=== PATIENT | female | born 1940 | race Caucasian/White ===

== ENCOUNTER 2021-04-24 13:25 | Emergency (ER) | payer MEDICARE ==
[~2021-04-24] VITALS: Ht 157.5 cm; Wt 92.5 kg
[~2021-04-24 13:25] MED LIST: ASPIR 8181 MG PO; CENTRUM SILVER1 EAC3 PO; CIPRO500 MG PO; GLUCOSAMINE-CH1 EA36 PO; HUMALOG MI100 UNIT/2 SUB-Q; IMODIUM A-D2 M2 PO; LEVOTHYROXINE125 MCG PO; LISINOPRIL-HCT1 EACH PO; MELOXICAM15 MG PO; METOPROLOL SUCC25 MG PO; PREVALITE PACKET4 GM PO; SIMVASTATIN40 MG PO; SUPER B WITH V1 EACH PO; TRAVATAN Z5 ML OPTH; VITAMIN D31000 UNI1 PO
[2021-04-24] MEDS ORDERED: ELIQUIS5 MG PO (13:38)
[2021-04-24] MEDS ORDERED: NITROFURANTOIN100 M1 PO (13:38)
[2021-04-24] MEDS ORDERED: DOXYCYCLINE HY100 MG PO (13:39)
--- NOTE | 2021-04-25 06:26 | CONS ---
[facility] [address], [place] [address] Signed DATE OF CONSULTATION: 04/24/2021 CHIEF COMPLAINT: Epigastric abdominal pain. 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 She has had six days of epigastric and right upper quadrant abdominal pain radiating through to her back in her shoulder. Apparently, she has been to the urgent care clinic and her primary care provider. Lots of blocks has been done and they thought she might have a urinary tract infection. Apparently, she was supposed to take some medication for that. She has been getting worse over the last six days and finally came to the emergency room for evaluation. In the emergency room, she has peritonitis in the epigastric right upper quadrant. White count was a little elevated at 10.1. There is no lactic acid. The AST and ALT are not particularly concerning. The alkaline phosphatase was up a little bit at 119. Albumin is low at 2.1. Lipase was normal at 115. Chest x-ray was unremarkable except for her TAVR replacement of her aortic valve. She had an ultrasound of the right upper quadrant, it was unconcerning. Therefore, she had a CT scan of abdomen and pelvis and she has significant inflammatory changes around the antrum, duodenum with fluid around the gallbladder and liver with a few bubbles of air around the duodenum and the antrum. Obviously, there was concern for perforated viscus, particularly an ulcer. I have been asked to see her as a general surgeon on-call. In the meantime, she has declined pain medication, but did receive cefepime and Flagyl. She is here with her two daughters. PAST MEDICAL HISTORY: Thyroid cancer, colon cancer, hypothyroidism, type 2 diabetes, hypertension, hypercholesterolemia, coronary artery disease, and T12 compression fracture. PAST SURGICAL HISTORY: Includes the total thyroidectomy, colectomy in 1994, ventral hernia repair with mesh and TAVR aortic valve replacement. SOCIAL HISTORY: She does not smoke or drink. She still lives alone in a house, but does not drive. 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 Beatriz Dukes is her primary care provider. She has four children. She is now a . She has two daughters here [place], Michelle at [phone] and Lucero at [phone]. Her son, Nasir has also been available to us on the phone. FAMILY HISTORY: Her sister had diabetes and chronic renal failure and eventually passed. Electronically Signed By: ALVINO ARMENTA MD 04/25/21 0626 PATIENT NAME: RONNA MELO CONSULTATION DATE OF : 36 REPORT #: [id number] PHYSICIAN: ALVINO ARMENTA MD PCP: BEATRIZ DUKES REPORT IS CONFIDENTIAL AND NOT TO BE RELEASED WITHOUT AUTHORIZATION [address] [address] Signed REVIEW OF SYSTEMS: Ronna told me she gets around fairly well with a cane, but sometimes uses a walker. ALLERGIES: Morphine, sulfa, Demerol, codeine, and cyclobenzaprine, but Dilaudid seems to work fine. MEDICATIONS: 1. Insulin. 2. Levothyroxine. 3. Lisinopril. 4. Hydrochlorothiazide. 5. Metoprolol. 6. Simvastatin. 7. Aspirin. 8. Loperamide. 9. Multivitamin. 10. Vitamin B. 11. Vitamin D. 12. Glucosamine. 13. Chondroitin. 14. Nitrofurantoin. 15. Eliquis. 16. Doxycycline. PHYSICAL EXAMINATION: VITAL SIGNS: Her blood pressure is up with IV fluids at 121/58, heart rate 70, respiratory rate 21, temperature is 98.2. She is 100% on 2 L nasal cannula. She is 5 feet 2 inches at 92 kg. GENERAL: Ronna is an 80-year-old elderly obese female, lying supine in her ER bed. Her two daughters are in the room. She does answer appropriately but it takes some coaxing and it is obvious that she is not feeling well. LUNGS: Generally clear to auscultation bilaterally. HEART: Regular rate and rhythm without murmurs. ABDOMEN: Obese and soft but she clearly has peritonitis in the epigastric area in the right upper quadrant. LABORATORY DATA: Her white blood count is 10.1, hemoglobin 11.7, neutrophils are 77, platelets are 271. Her BUN is up a little at 41, creatinine is slightly up at 1.39, glucose is good at 118. Urinalysis generally good except for maybe a least yeast. AST is 39, ALT 41, alkaline phosphatase 119, albumin is 2.1, lipase 115. RADIOGRAPHIC STUDIES: This chest x-ray is unremarkable other than her TAVR aortic valve replacement. Electronically Signed By: ALVINO ARMENTA MD 04/25/21 0626 PATIENT NAME: RONNA MELO CONSULTATION DATE OF : 36 REPORT #: [id number] PHYSICIAN: ALVINO ARMENTA MD PCP: BEATRIZ DUKES [facility] REPORT IS CONFIDENTIAL AND NOT TO BE RELEASED WITHOUT AUTHORIZATION [address] [address] Signed Ultrasound of the right upper quadrant was unremarkable. The CT scan of the abdomen and pelvis shows the inflammatory changes around the antrum and pyloric channel along with a few bubbles of air and reactive fluid around the gallbladder and the liver. ASSESSMENT AND PLAN: Ronna is an 80-year-old female who presents with a perforated viscus, most likely perforated duodenal or antral ulcer. She is currently going to receive Kcentra to reverse the Eliquis. We are in the midst of our COVID pandemic with a significant rise in admissions. Our 25-bed critical access hospital is full. We have one hospitalist available, who has been working five straight days along with myself. It has been quite challenging obviously with providing our efforts between this many different patients with such high level of care. We know that Ronna is quite sick and she is going to require significant ICU care following her surgery. After talking with Ronna and her two daughters, it was felt that she would be willing to accept at least two weeks of full ICU care and after that reassess. At this point, she has kept herself a full code. We felt that her best option would [facility] at [facility] in [place], [place]. We took the opportunity to call the surgeon, Dr. Hector who graciously is willing to accept her as a direct transfer from ER to the ER. He has headed into surgery himself but will be available by the time she makes it down to [place]. The ER doctor, Dr. Willams had talked to me personally on the phone as well. We are currently in the process of mobilizing our [facility] and will be getting her down to [place]. I reviewed all this with Ronna, her two daughters and her son, they are all in agreement. They are aware that she is quite ill and has a significant hill to climb in front of her. I am certainly happy to help her upon her return to [place]. They have expressed understanding and agreed with the above plan. MD DONNA Andrade/ОЛЕГL /[id number] cc: MD Dr. Beatriz Andrade Copies: ALVINO ARMENTA MD Electronically Signed By: ALVINO ARMENTA MD 04/25/21 0626 PATIENT NAME: RONNA MELO CONSULTATION DATE OF : 36 REPORT #: [id number] PHYSICIAN: ALVINO ARMENTA MD PCP: BEATRIZ DUKES [facility] REPORT IS CONFIDENTIAL AND NOT TO BE RELEASED WITHOUT AUTHORIZATION [facility] [address] [place] [id number] Signed ~ Electronically Signed By: ALVINO ARMENTA MD 04/25/2126 PATIENT NAME: RONNA MELO CONSULTATION DATE OF : 36 REPORT #: [id number] PHYSICIAN: ALVINO ARMENTA MD PCP: BEATRIZ DUKES [facility] REPORT IS CONFIDENTIAL AND NOT TO BE RELEASED WITHOUT AUTHORIZATION
--- NOTE | 2021-04-27 11:25 | EKG ---
[facility] [address] [facility] [place] [address] Signed Sinus rhythm with premature supraventricular complexes Low voltage QRS Borderline ECG No previous ECGs available Confirmed by ELENI MONTELONGO MD ([id number]) on 04/27/2021 11:24:58 AM Electronically Signed By: ELENI MONTELONGO MD 04/27/21 1125 PATIENT NAME: RONNA MELO Electrocardiogram DATE OF : 36 PHYSICIAN: ELENI MONTELONGO MD REPORT #: [id number] REPORT IS CONFIDENTIAL AND NOT TO BE RELEASED WITHOUT AUTHORIZATION
== END 2021-04-24 23:33 | disposition short-term general hospital (02) ==
LOC: ED 13:25
DX: K25.5 Chronic or unspecified gastric ulcer with perforation (principal); E03.9 Hypothyroidism, unspecified; E78.00 Pure hypercholesterolemia, unspecified; E11.9 Type 2 diabetes mellitus without complications; I10 Essential (primary) hypertension; Z20.822 Contact with and (suspected) exposure to COVID-19; Z85.038 Personal history of other malignant neoplasm of large intestine; Z88.2 Allergy status to sulfonamides; Z88.8 Allergy status to other drugs, medicaments and biological substances; Z88.5 Allergy status to narcotic agent; Z79.4 Long term (current) use of insulin; Z79.899 Other long term (current) drug therapy; Z79.890 Hormone replacement therapy; Z79.82 Long term (current) use of aspirin
CPT/HCPCS: 51701; 71045; 74176; 76705; 80053; 81001; 83690; 84484; 85025; 93005; 93010; 96368; 99285-25; C9113; C9803; J0692; J1170; J2405; J7030; J7040; J7168; U0003

== ENCOUNTER 2021-06-23 19:11 | Inpatient (IN) | payer MEDICARE ==
[~2021-06-23] VITALS: Ht 157.5 cm; Wt 69.4 kg
[~2021-06-23 19:11] MED LIST changes: +DOXYCYCLINE HY100 MG PO; +ELIQUIS5 MG PO; +LEVO-T150 MCG PO; -LEVOTHYROXINE125 MCG PO; +NITROFURANTOIN100 M1 PO; -VITAMIN D31000 UNI1 PO; +VITAMIN D31250 MCG PO
[2021-06-23] MEDS ORDERED: CEFTRIAXONE2 G2 IM (20:26)
[2021-06-23] MEDS ORDERED: ARTHRITIS PAIN150 GM TOP (20:27)
[2021-06-23] MEDS ORDERED: DIPROLENE 0.05%15 GM TOP (20:28)
[2021-06-23] MEDS ORDERED: INSULIN GL100 UNIT/1 SQ (20:29)
[2021-06-23] MEDS ORDERED: CEPHALEXIN500 MG PO (20:32)
[2021-06-23] MEDS ORDERED: ONDANSETRON ODT4 MG PO (20:33)
[2021-06-23] MEDS ORDERED: PROBIOTIC1 EAC2 PO (20:34)
[2021-06-23] MEDS ORDERED: ZESTORETIC 20-1 EACH PO ×2 (20:40→21:59)
[2021-06-23] MEDS ORDERED: PROTONIX20 MG PO (20:40)
--- NOTE | 2021-06-23 21:14 | EKG ---
[facility] [address] [facility] [place] [address] Signed Sinus rhythm with occasional premature ventricular complexes Anterolateral infarct , age undetermined Abnormal ECG When compared with ECG of 24-APR-2021 17:20, premature ventricular complexes are now present premature supraventricular complexes are no longer present Anterolateral infarct is now present Confirmed by DINO MARCELINO MD ([id number]) on 06/23/2021 9:14:36 PM Electronically Signed By: DINO MARCELINO MD 06/23/21 2114 PATIENT NAME: RONNA MELO Electrocardiogram DATE OF : 36 PHYSICIAN: DINO MARCELINO MD REPORT #: [id number] REPORT IS CONFIDENTIAL AND NOT TO BE RELEASED WITHOUT AUTHORIZATION
--- NOTE | 2021-06-24 22:26 | NUR ---
ARRIVED TO THE FLOOR DROWSY. DOES NOT WANT TO BE MOVED. DAUGHTERS ASSISTED WITH TURNING TO OBTAIN PICTURES OF THE WOUNDS TO HER HIPS. HEELS FLOATED. IVF INFUSING. DINING ROOM ATTENDANT AWARE OF NEED FOR D5LR WITH 20 KCL.
--- NOTE | 2021-06-25 03:17 | NUR ---
HEEL PROTECTORS ON. VS TAKEN. NG TUBE DRAINING DARK GREEN FLUID. PT DOES NOT WANT TO PARTICIPATE IN CARE. BG 162.
--- NOTE | 2021-06-25 03:41 | NUR ---
PIP[facility] FROM [facility] CALLED FOR UPDATE ON PT. STATES THERE ARE STILL NO BEDS AVAILABLE.
--- NOTE | 2021-06-25 05:56 | NUR ---
PT HAS HAD AN UNEVENTFUL NIGHT. 200 OF DARK GREEN DRAINAGE FROM NG TUBE. HAS DENIED NAUSEA AND PAIN THROUGHOUT THE SHIFT. IS NOT INTERESTED IN PARTICIPATING IN CARE OR ALLOWING CARE TO BE DONE TO HER. PT NOTED CHANGING POSITION IN BED. RECEIVED CALL FROM [facility] WANTING UPDATE. STILL NO BED AVAILABLE.
--- NOTE | 2021-06-25 07:30 | NUR ---
PATIENT REPORT GIVEN TO THIS RN BY MARIELOS Ugalde RN. PATIENT RESTING QUIETLY ON HER RIGHT SIDE, EYES CLOSED, RESPIRATIONS ARE REGULAR AND EVEN, AND CALL LIGHT IS IN REACH. PATIENT HAS NO CURRENT CARE NEEDS AT THIS TIME.
--- NOTE | 2021-06-25 08:06 | EKG ---
[facility] [address] [facility] [place] [address] Signed Sinus rhythm with premature atrial complexes Anterolateral infarct (cited on or before 23-JUN-2021) Abnormal ECG When compared with ECG of 23-JUN-2021 19:30, premature ventricular complexes are no longer present premature atrial complexes are now present Confirmed by DINO MARCELINO MD ([id number]) on 06/25/2021 8:06:35 AM Electronically Signed By: DINO MARCELINO MD 06/25/21 0806 PATIENT NAME: RONNA MELO Electrocardiogram DATE OF : 36 PHYSICIAN: DINO MARCELINO MD REPORT #: [id number] REPORT IS CONFIDENTIAL AND NOT TO BE RELEASED WITHOUT AUTHORIZATION
--- NOTE | 2021-06-25 09:30 | NUR ---
THIS RN IN ROOM TO GIVE AM MEDS AND PERFORM AM ASSESSMENT. LAC IV INFILTRATED AND ALMOST ALL AM MEDS AR E IV. THIS IV WAS DC'D AND 2 ATTEMPTS MADE BY THIS RN TO ESTABLISH A NEW IV SITE WITHOUT SUCCESS. CHARGE NURSE AND NURSE TUBE SKIVER CALLED. GAVE VERBAL ORDER FOR A MIDLINE TO BE PLACED. AWAITING IV ACCESS TO GIVE AM MEDS. PATIENT IRRITABLE AND WANTS STAFF TO LEAVE HER ALONE SO SHE CAN SLEEP. THIS RN TRIED TO EXPLAIN THE REASONS STAFF WERE IN THE ROOM AND SOON WE COULD GET IV ACCESS WE WOULD BE ABLE TO LET HER REST. PATIENT NOT HAPPY WITH THIS ANSWER, BUT SAID,"OK".
--- NOTE | 2021-06-25 10:50 | NUR ---
THIS RN TO ROOM TO ASSIST WITH IV START. 24 G IV STARTED TO LEFT UPPER ARM/SHOULDER PER PROTOCOL. BLOOD RETURN NOTED. PT NOTED TO HAVE VERY LIMITED VEINS. MD CONSULTED REGARDING POSSIBLE PICC/MID LINE. MD AWARE. JERRY, PTS ASHLIE RN UPDATED. NO ADDITIONAL NEEDS AT THIS TIME. PTS PRIMARY RN AT BEDSIDE. CALL LIGHT WITHIN REACH. BED RAILS UP.
[2021-06-25] MEDS ORDERED: ACETAMINOPHEN325 M1 PO (10:51)
[2021-06-25] MEDS ORDERED: METOPROLOL SUCC50 MG PO (10:57)
[2021-06-25] MEDS ORDERED: CENTRUM SILVER1 EAC3 PO (11:08)
--- NOTE | 2021-06-25 11:15 | NUR ---
Medications reconciled using [facility] med list
--- NOTE | 2021-06-25 11:50 | NUR ---
NURSE SPECIALIST FIELD ENGINEER AND DEPUTY COUNTY COUNSEL IN PATIENT'S ROOM TRYING TO FIND ANOTHER IV SITE AT THIS TIME.
--- NOTE | 2021-06-25 13:10 | NUR ---
THIS RN IN TO CHECK ON PATIENT. PATIENT RESTING QUIETLY SUPINE, EYES CLOSED, RESPIRATIONS ARE REGULAR AND EVEN, CALL LIGHT IS IN REACH. PATIENT HAS WANTED TO BE LEFT ALONE TO SLEEP.
--- NOTE | 2021-06-25 14:03 | NUR ---
9 BEAT RUN OF V-TACH NOTED ON MONITOR. MED/SURG CALLED AND WILL CHECK ON PT. PT HAS NOW RETURNED TO SINUS RYTHEM WITH HR OF 80'S.
--- NOTE | 2021-06-25 14:42 | NUR ---
PATIENT CALLED AND WANTS TO BE REPOSITIONED IN BED. THIS IS THE FIRST PATIENT INITIATED CONTACT OF THE DAY PATIENT HAS NO WANTED STAFF IN HER ROOM AND HAS WANTED TO BE LEFT ALONE TO SLEEP. PATIENT PULLED UP AND REPOSITIONED IN BED BY THIS RN AND DARIUS CARRASQUILLO. PATIENT DENIES PAIN. ALL 1400 MEDS HAVE BEEN GIVEN AND PATIENT REQUIRED 1UNIT OF INSULIN COVERAGE. BOTH IV'S ARE INFUSING WNL AND SWELLING AND IS DOWN AND REDNESS GONE IN PREVIOUS IV SITE THAT INFILTRATED AT THE LAC. PATIENT VS ARE STABLE AND CALL LIGHT REMAINS IN REACH. PATIENT DENIES ANY OTHER CARE NEEDS AT THIS TIME AND HAS ASKED TO NOT BE DISTURBED, BUT DARIUS STEWART IS COMING TO PLACE A MIDLINE OR PICC LINE FOR THE PATIENT.
--- NOTE | 2021-06-25 16:01 | NUR ---
[facility] CALLED AND WAS UPDATE ON PATIENT'S CONDITION BY THIS RN. TRANSFER CENTER SAYS THEY STILL DON'T HAVE A BED AT THIS TIME, BUT WILL KEEP WORKING ON IT.
--- NOTE | 2021-06-25 16:02 | NUR ---
PATIENT'S DAUGHTER CALLED AND WAS UPDATED ON PATIENT'S CARE. PATIENT REQUESTING DAUGHTER COME IN AND SPEND SOME TIME WITH PATIENT THIS EVENING AND DAUGHTER SAYS SHE WILL BE IN.
--- NOTE | 2021-06-25 16:12 | NUR ---
MIDLINE INSERTION NOTE ORDERS RECIEVED TO EVALUATE RONNA FOR POSSIBLE MIDLINE PLACEMENT. AFTER REVIEWING THE CHART AND INTERVIEWING THE PAITNET, NO ABSOLUTE CONTRAINDICATIONS WERE IDENTIFIED. RISKS AND COMPLICATIONS OF MID LINES WERE DISCUSSED AND INFORMED VERBAL CONSENT WAS GIVEN PRIOR TO THE START OF THE PROCEDURE. THE RISKS OF BLEEDING, BRUISING, AND INFECTION WERE EMPHASIZED TO THE PAITIENT. THE RIGHT ARM WAS EVALUATED WITH SITE RITE U/S AND THE RIGHT BASILIC VEIN WAS FOUND TO BE LARGE ENOUGH TO ACCOMIDATE AN 4 FR MIDLINE WHICH WOULD TAKE UP 41% OF THE VESSEL VOLUME PER SITE RITE. THE ARM WAS PREPED AND DRAPED AND STERILE TECHNIQUE WAS FOLLOWED FOR THE DURATION OF THE INSERTION AND DRESSING APPLICATION. AN 18G 10CM MIDLINE WAS SELECTED AND THERE WERE NO ISSUES WITH ACCESSING THE VEIN, ADVANCING THE GUIDEWIRE, OR ADVANCING THE LINE. BRISK DARK RED NONPULSATILE BLOOD WAS SEEN FLOWING FROM THE LINE DURING INSERTION. THE PATIENT TOLERATED THE PROCEDURE WELL.
--- NOTE | 2021-06-25 17:43 | NUR ---
PATIENT'S FAMILY HAS GONE HOME. PATIENT REPOSITIONED FROM HER RIGHT SIDE TO HER LEFT SIDE AND NEW DRAW SHEET AND CHUX PLACED UNDER PATIENT. PATIENT HAD A SMALL NEGRON BM. ALLEVYN DRESSING PLACED OVER RIGHT HIP OPEN AREA WHICH IS MOIST. PATIENT DENIES ANY OTHER NEEDS AT THIS TIME. CALL LIGHT IS IN REACH. PM ASSESSMENT COMPLETE.
--- NOTE | 2021-06-25 20:30 | NUR ---
DAUGHTER IN ROOM. PT DOZING. RESPIRATIONS EVEN AND UNLABORED. PT EASILY AROUSABLE AND DRIFTS OFF TO SLEEP QUICKLY.
--- NOTE | 2021-06-25 23:30 | NUR ---
PT USED HER CALL LIGHT. FEELS UNCOMFORTABLE. ASSISTED PT WITH REPOSITIONING. PT ABLE TO TURN HERSELF IN BED AND PILLOWS WERE PLACED BEHIND BACK AND BETWEEN LEGS. DENIES ANY NAUSEA. NG CANISER REPLACED. GREEN DRAINAGE IN NG TUBE. PT REFUSING SCD'S AND HEEL PROTECTORS.
--- NOTE | 2021-06-26 01:48 | NUR ---
answered patient's call light, she is requesting to change position in bed, patient assisted in rolling self toward her left side, placed pillows behind her back so she can lay onher left side.
--- NOTE | 2021-06-26 02:23 | NUR ---
PT AWAKENS WHEN NURSE WALKS INTO ROOM. HAS BECOME MORE COOPERATIVE. BG TAKEN. RESULT 121.
--- NOTE | 2021-06-26 04:15 | NUR ---
RENEE FROM [facility] CALLED FOR AN UPDATE. STATES STILL NO AVAILABLE BEDS.
--- NOTE | 2021-06-26 06:07 | NUR ---
ORAL CARE DONE.
--- NOTE | 2021-06-26 06:43 | NUR ---
Physician was messaged for urine op of 325 mls this shift. Physician was aware of low output from previous shift.
--- NOTE | 2021-06-26 07:30 | NUR ---
SHIFT REPORT GIVEN TO THIS RN BY MARIELOS SZYMANSKI RN. PATIENT RESTING QUIETLY ON HER LEFT SIDE. PATIENT DENIES BRITO AND DENIES ANY CARE NEEDS AT THIS TIME. CALL LIGHT IS IN REACH.
--- NOTE | 2021-06-26 08:05 | NUR ---
H&P and notes faxed to [facility] for update.
--- NOTE | 2021-06-26 09:12 | NUR ---
PILLOW REMOVED FROM BETWEEN PATIENT'S LEGS, PER PATIENT REQUEST.
--- NOTE | 2021-06-26 09:22 | NUR ---
THIS RN IN TO SEE PATIENT WITH LEOPOLDO ROBERT. PATIENT DENIES PAIN, ATTENDS ARE DRY, MIDLINE INFUSING AND FLUSHES WELL. BOTH OF PATIENT'S OTHER IV'S ALSO FLUSH AND ARE WNL. THIS RN NOTED THAT THERE SEEMS TO BE SOME GENERALIZED EDEMA IN BOTH UPPER EXTREMETIES WHILE THE LOWER EXTEREMETIES SHOW NO EDEMA. PATIENT'S NG REMAINS TO LIWS WITH DARK GREEN DRAINAGE. PATIENT REMAINS ON 2L/NC FROM LINEN CLERK. LUNGS ARE DIM IN THE BASES AND BOWEL TONES ARE ACTIVE. MIDLINE DRESSING OVER OLD ABD SURGICAL SITE REMAINS C/D/I. PATIENT DENIES ANY CARE NEEDS AND CALL LIGHT IS IN HER RIGHT HAND. PATIENT HAS NO OTHER CARE NEEDS AT THIS TIME.
--- NOTE | 2021-06-26 11:25 | NUR ---
THIS RN COLLECTED AEROBIC AND ANAEROBIC SWAB FROM ABD INCISION SITE. THE WOUND HAS PURULENT EXUDATE AND WOUND CLEANED WITH STERILE WATER. NEW DRY GAUZE AND ABD DRESSING IN PLACE WITH PAPER TAPE. PATIENT TOLERATED THIS PROCEDURE WELL. CALL LIGHT IN REACH AND PATIENT DENIES ANY OTHER CARE NEEDS AT THIS TIME.
--- NOTE | 2021-06-26 11:48 | NUR ---
THIS RN TO GIVE IV CARDIAC MEDS SIVP. PATIENT ASKING WHAT MEDS ARE FOR AND INFORMED HER IT WAS FOR HER HR AND B/P. PATIENT SAID,"IF YOU GUYS WERE NOT DISTURBING ME ALL THE TIME THOSE THINGS WOULD BE JUST FINE". PATIENT'S CALL LIGHT IS IN REACH.
--- NOTE | 2021-06-26 13:30 | NUR ---
PATIENT CALLED AND FINALLY WANTS TO BE TURNED. PATIENT PULLED UP IN BED AND TURNED TO HER RIGHT SIDE WITH PILLOWS TO THE BACK. THIS WAS DONE BY THIS RN AND DARIUS CARRASQUILLO. PATIENT HAS DECLINED TO BE TURNED SO FAR THIS SHIFT UNTIL THIS TIME. PATIENT SAYS SHE IS COMFORTABLE IN THE NEW POSITION, BUT IS STILL REFUSING SCD'S. CALL LIGHT IS IN REACH AND PATIENT DENIES ANYOTHER CARE NEEDS AT THIS TIME. AFTERNOON ASSESSMENT COMPLETE.
--- NOTE | 2021-06-26 14:15 | NUR ---
PATIENT IN BED RESTING AT THIS TIME. VITALS AND I&O'S CHARTED. LOW URINE OUTPUT, RN NOTIFIED. CHATH CARE DONE. CALL LIGHT IN REACH. NO FURTHER NEEDS AT THIS TIME.
--- NOTE | 2021-06-26 14:22 | NUR ---
INFORMED PATIENT'S URINE OUTPUT 75MLS FOR THE LAST 4HRS. ORDERED ALBUMIN AND AWAITING THE ORDER TO CLEAR PHARMACY.
--- NOTE | 2021-06-26 14:38 | NUR ---
ALBUMIN HUNG AND RUNNING. PATIENT DENIES ANY CARE NEEDS AT THIS TIME. CALL LIGHT IRAM MORATAYA.
--- NOTE | 2021-06-26 18:04 | NUR ---
INFORMED THAT PATIENT HAS HAD 75MLS MORE URINE OUT IN HER JUAREZ SO SHE IS PUTTING OUT ABOUT 25MLS/HR. SAID NO NEED TO KEEP ALLING ABOUT URINE OUTPUT, BUT TO CALL HIM IF PATIENT BECOMES HYPOTENSIVE OR FEBRILE. THIS RN REPEATED THES INSTRUCTIONS BACK AND CONFIRMED READ BACK. PATIENT RESTING QUIETLY IN BED AN O2 SATS WERE RUNNING AT 100% ON 2L/NC SO O2 WEANED OFF FOR NOW. PATIENT DENIES ANY CARE NEEDS AT THIS TIME. CALL LIGHT IS IN REACH.
--- NOTE | 2021-06-26 18:07 | NUR ---
PATIENT HAS HAD LOW URINE OUTPUT ALL DAY. HAD TRIED GIVEN PATIENT SOME ALBUMIN HOPING THIS WOULD INCREASE URINE OUTPUT, BUT IT DID NOT. LR REMAINS AT 150MLS/HR IN MIDDLINE AND PATIENT REMAINS ON MERREM. OLD ABD OPERATIVE MIDLINE SITE CULTURED TODAY FOR AEROBIC AND ANAEROBIC BACTERIA. PATIENT STARTING TO HOLD SOME FLUID IN HER UPPER EXTREMETIES TODAY, INFORMED THIS RN PATIENT MAY BE STARTING TO 3RD SPACE. PATIENT LUNGS DIM IN THE BASES OTHERWISE CLEAR. BOWEL TONES ACTIVE. NG TUBE TO LIWS STILL PUTTING OUT DARK GREEN DRAINAGE. NOT TO BE CONTACT ABOUT URINE OUTPUT AT THIS POINT. HE JUST WANTS TO BE CALLED RIGHT AWAY IF PATIENT BECOMES HYPOTENSIVE OR FEBRILE. STILL AWAITING FOR BED SO PATIENT CAN TRANSFER TO [facility]. PATIENT'S FAMILY HAS BEEN FULLY UPDATED BY .
--- NOTE | 2021-06-26 19:41 | NUR ---
FAMILY IN ROOM WITH PATIENT, NOTIFIED THAT [facility] HAS A BED AND WE WILL WORK ON ARRANGING TRANSPORTATION VIA [facility]. DR. MONTELONGO'S DISCHARGE SUMMARY ADDED TO TRANSFER DOCUMENTS.
--- NOTE | 2021-06-26 19:50 | NUR ---
REPORT RECEIVED FROM DARIUS EDWARDS. pt RESTING IN BED AWAKE. DENIES ANY NEEDS AT THIS TIME. NO COMPLAINTS OF PAIN. 2L OXYGEN BY NC IN PLACE. NGT TO LOW INT WALL SUCTION. YELLOW URINE IN JUAREZ. CALL LIGHT IN REACH. FAMILY AT BEDSIDE.
--- NOTE | 2021-06-26 20:40 | NUR ---
pt RESTING IN BED AWAKE. ASSESSMENT COMPLETE. MIDLINE DRESSING CDI. BOWEL TONES ACTIVE. NGT TO LOW INT WALL SUCTION, DARK GREEN DRAINAGE IN TUBE. NO NEW DRAINAGE IN CANNISTER. JUAREZ EMPTIED 100 MLS YELLOW URINE. pt NPO. IV SITES FLUSHED WNL. SCHEDULED LOPRESSOR ADMINISTERED. [facility] IN ROOM. HANDOFF REPORT GIVEN. VSS. FAMILY IN ROOM.
--- NOTE | 2021-06-26 20:50 | NUR ---
pt OFF FLOOR WITH [facility], EMS TO TRANSFER TO [facility] AT THIS TIME.
--- NOTE | 2021-06-26 21:05 | NUR ---
TELEPHONE REPORT CALLED TO [facility] DARIUS STEWART.
== END 2021-06-26 20:54 | disposition short-term general hospital (02) | DRG 439 ==
LOC: ED 19:11 → MS 19:13
PROVIDERS: ADMIT Internal Medicine; ATTEND Internal Medicine
DX: K86.3 Pseudocyst of pancreas (principal); N17.9 Acute kidney failure, unspecified; F05 Delirium due to known physiological condition; E46 Unspecified protein-calorie malnutrition; K56.609 Unspecified intestinal obstruction, unspecified as to partial versus complete obstruction; T81.49XA Infection following a procedure, other surgical site, initial encounter; Z20.822 Contact with and (suspected) exposure to COVID-19; D64.9 Anemia, unspecified; E11.649 Type 2 diabetes mellitus with hypoglycemia without coma; I48.0 Paroxysmal atrial fibrillation; I10 Essential (primary) hypertension; Z68.28 Body mass index [BMI] 28.0-28.9, adult; Z95.2 Presence of prosthetic heart valve; Z88.5 Allergy status to narcotic agent; Z88.2 Allergy status to sulfonamides; Z88.6 Allergy status to analgesic agent; Z88.8 Allergy status to other drugs, medicaments and biological substances; Z79.01 Long term (current) use of anticoagulants; Z79.899 Other long term (current) drug therapy; Y83.8 Other surgical procedures as the cause of abnormal reaction of the patient, or of later complication, without mention of misadventure at the time of the procedure
CPT/HCPCS: 36415; 36569; 51702; 71045; 74177; 80048; 80053; 80076; 80503; 81001; 82803; 83605; 83690; 83735; 84100; 85025; 85610; 86850; 86900; 86901; 87493; 93005; 93010; 96366; 96367; 96368; 96372; 96375; 96376; 99285-25; C1751; C9113; C9803; G0378; J0295; J1650; J1815; J2185; J2250; J2405; J2550; J3010; J3475; J3480; J7060; J7121; P9047; Q9967; U0003

== ENCOUNTER 2021-07-06 14:25 | Emergency (ER) | payer MEDICARE ==
[~2021-07-06] VITALS: Ht 157.5 cm; Wt 88.7 kg
[~2021-07-06 14:25] MED LIST changes: +ACETAMINOPHEN325 M1 PO; +ARTHRITIS PAIN150 GM TOP; +CEFTRIAXONE2 G2 IM; +CEPHALEXIN500 MG PO; +DIPROLENE 0.05%15 GM TOP; +INSULIN GL100 UNIT/1 SQ; +METOPROLOL SUCC50 MG PO; +ONDANSETRON ODT4 MG PO; +PROBIOTIC1 EAC2 PO; +PROTONIX20 MG PO; +ZESTORETIC 20-1 EACH PO
--- OUTSIDE RECORDS SUMMARY | 2021-07-06 14:32 | XMS ---
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 Physician Wheelchair Van Driver Current PHONE: Unknown JASON [facility] Current PHONE: Unknown [facility] PHONE: [phone] YENNIFER SNIDER Physician Wheelchair Van Driver Current PHONE: Unknown Meet has no Care Guidelines for this patient. E.D. VISIT COUNT (12 MO.) 1 [facility] 3 CYRIL Ibrahim TOTAL 4 NOTE: Visits indicate total known visits. ED/UCC VISIT TRACKING (12 MO.) 07/06/2021 14:26 [facility] TYPE: Emergency COMPLAINT: - FLU SYMPTOMS 06/23/2021 19:12 [facility] [place] TYPE: Emergency COMPLAINT: - PAIN 04/25/2021 02:58 [facility] TYPE: Emergency DIAGNOSES: 96458. Perforated Viscous/Ulcer 00613. ABD PAIN 11167. Perforation of intestine (nontraumatic) 04/24/2021 13:25 [facility] TYPE: Emergency COMPLAINT: - PAIN DIAGNOSES: - Type 2 diabetes mellitus without complications - Allergy status to sulfonamides - Pure hypercholesterolemia, unspecified - Hormone replacement therapy - Allergy status to narcotic agent - half-way (current) use of aspirin - Allergy status to other drugs, medicaments and biological substances - Essential (primary) hypertension - Unspecified abdominal pain - Chronic or unspecified gastric ulcer with perforation - Hypothyroidism, unspecified - half-way (current) use of insulin - 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 Other specified disorders of peritoneum 62190. fluid collection 92483. Other specified disorders of peritoneum 74573. Other specified symptoms and signs involving the digestive system and abdomen 06/25/2021 21:[address] [facility] TYPE: Medical Surgical COMPLAINT: - PANCREATIC PSEUDOCYST DIAGNOSES: - Acute kidney failure, unspecified - Essential (primary) hypertension - Paroxysmal atrial fibrillation - Allergy status to sulfonamides - Anemia, unspecified - Other surgical procedures as the cause of abnormal reaction of the patient, or of later complication, without mention of misadventure at the time of the procedure - Unspecified intestinal obstruction, unspecified as to partial versus complete obstruction - Unspecified intestinal obstruction, unspecified as to partial versus complete obstruction - Allergy status to other drugs, medicaments and biological substances - Type 2 diabetes mellitus with hypoglycemia without coma - Infection following a procedure, other surgical site, initial encounter - Acute pancreatitis with infected necrosis, unspecified - Allergy status to narcotic agent - Allergy status to other drugs, medicaments and biological substances - Delirium due to known physiological condition - Anemia, unspecified - Pseudocyst of pancreas - Presence of prosthetic heart valve - Type 2 diabetes mellitus with hypoglycemia without coma - Delirium due to known physiological condition - Other surgical procedures as the cause of abnormal reaction of the patient, or of later complication, without mention of misadventure at the time of the procedure - Presence of prosthetic heart valve - Allergy status to analgesic agent - Essential (primary) hypertension - half-way (current) use of anticoagulants - Body mass index [BMI] 28.0-28.9, adult - Unspecified protein-calorie malnutrition - Unspecified protein-calorie malnutrition - Allergy status to analgesic agent - Infection following a procedure, other surgical site, initial encounter - 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 Other specified symptoms and signs involving the digestive system and abdomen . 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
== END 2021-07-06 22:02 | disposition home or self-care (01) ==
LOC: ED 14:25
DX: D64.9 Anemia, unspecified (principal); D72.829 Elevated white blood cell count, unspecified; J90 Pleural effusion, not elsewhere classified; E03.9 Hypothyroidism, unspecified; E11.9 Type 2 diabetes mellitus without complications; I10 Essential (primary) hypertension; E78.00 Pure hypercholesterolemia, unspecified; Z88.2 Allergy status to sulfonamides; Z88.8 Allergy status to other drugs, medicaments and biological substances; Z88.5 Allergy status to narcotic agent; Z79.899 Other long term (current) drug therapy; Z79.4 Long term (current) use of insulin
CPT/HCPCS: 36415; 74177; 80053; 83605; 83690; 85025; 99284-25

== ENCOUNTER 2021-07-07 18:02 | Emergency (ER) | payer MEDICARE ==
[~2021-07-07] VITALS: Ht 157.5 cm; Wt 88.7 kg
--- OUTSIDE RECORDS SUMMARY | 2021-07-07 18:10 | XMS ---
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 Physician Velocity Shooter Current PHONE: Unknown ALFREDO MORUA Nurse Practitioner Current PHONE: Unknown JASON [facility] Nursing [facility] Current PHONE: Unknown CHANDLER [facility] Current PHONE: [phone] YENNIFER SNIDER Physician Current PHONE: Unknown Meet has no Care Guidelines for this patient. [place] VISIT COUNT (12 MO.) 1 [facility] Marii Ibrahim TOTAL 5 NOTE: Visits indicate total known visits. ED/UCC VISIT TRACKING (12 MO.) 07/07/2021 18:02 [facility] TYPE: Emergency COMPLAINT: - MULTIPLE COMPLAINTS 07/06/2021 14:26 [facility] TYPE: Emergency COMPLAINT: - FLU SYMPTOMS 06/23/2021 19:12 [facility] TYPE: Emergency COMPLAINT: - PAIN 04/25/2021 02:58 [facility] TYPE: Emergency DIAGNOSES: 03537. Perforated Viscous/Ulcer 58095. ABD PAIN 58214. Perforation of intestine (nontraumatic) 04/24/2021 13:25 [facility] [place] TYPE: Emergency COMPLAINT: - PAIN DIAGNOSES: - Type 2 diabetes mellitus without complications - Allergy status to sulfonamides - Pure hypercholesterolemia, unspecified - Hormone replacement therapy - Allergy status to narcotic agent - prison (current) use of aspirin - Allergy status to other drugs, medicaments and biological substances - Essential (primary) hypertension - Unspecified abdominal pain - Chronic or unspecified gastric ulcer with perforation - Hypothyroidism, unspecified - prison (current) use of insulin - Other alum operator (current) drug therapy - Personal history of other malignant neoplasm of large intestine INPATIENT VISIT TRACKING (12 MO.) 06/26/2021 23:08 [facility] TYPE: Surgery DIAGNOSES: 97897. Other specified disorders of peritoneum 84388. fluid collection 72350. Other specified disorders of peritoneum 62431. Other specified symptoms and signs involving the digestive system and abdomen 06/25/2021 21:16 [facility] TYPE: Medical Surgical COMPLAINT: - PANCREATIC [...] analgesic agent - Essential (primary) hypertension - bulk receiver (current) use of anticoagulants - Body mass index [BMI] 28.0-28.9, adult - Unspecified protein-calorie malnutrition - Unspecified protein-calorie malnutrition - Allergy status to analgesic agent - Infection following a procedure, other surgical site, initial encounter - Other alum operator (current) drug therapy - Allergy status to sulfonamides - Paroxysmal atrial fibrillation - Acute kidney failure, unspecified - Other intermediate (current) drug therapy - prison (current) use of anticoagulants - Body mass index [BMI] 28.0-28.9, adult - Allergy status to narcotic agent 04/25/2021 02:58 [facility] TYPE: Surgery DIAGNOSES: . Other specified symptoms and signs involving the digestive system and abdomen . Perforation of intestine (nontraumatic) 09/27/2020 10:29 [facility] TYPE: Cardiology DIAGNOSES: - Mixed hyperlipidemia - Type 2 diabetes mellitus without complications - Nonrheumatic aortic (valve) stenosis - Urinary tract infection, site not specified - Presence of prosthetic heart valve - bulk receiver (current) use of insulin - Chronic kidney disease, stage 3 unspecified - Essential (primary) hypertension - Acute on chronic diastolic (congestive) heart failure - Paroxysmal atrial fibrillation [email or web address]
== END 2021-07-08 00:10 | disposition short-term general hospital (02) ==
LOC: ED 18:02
DX: K86.3 Pseudocyst of pancreas (principal); Z85.850 Personal history of malignant neoplasm of thyroid; Z85.038 Personal history of other malignant neoplasm of large intestine; E03.9 Hypothyroidism, unspecified; E11.9 Type 2 diabetes mellitus without complications; I10 Essential (primary) hypertension; E78.00 Pure hypercholesterolemia, unspecified; Z88.2 Allergy status to sulfonamides; Z88.5 Allergy status to narcotic agent; Z88.8 Allergy status to other drugs, medicaments and biological substances; Z79.899 Other long term (current) drug therapy; Z79.01 Long term (current) use of anticoagulants; Z79.4 Long term (current) use of insulin; Z20.822 Contact with and (suspected) exposure to COVID-19
CPT/HCPCS: 36415; 80053; 83690; 85025; 85060; 99285; C9803; U0003

== ENCOUNTER 2021-09-06 17:23 | Emergency (ER) | payer MEDICARE ==
[~2021-09-06] VITALS: Ht 157.5 cm; Wt 72.9 kg
--- OUTSIDE RECORDS SUMMARY | 2021-09-06 17:26 | XMS ---
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 Physician Warehouse Delivery Manager Current PHONE: Unknown ALFREDO MOURA Nurse Practitioner Current PHONE: Unknown [facility] Current PHONE: Unknown [facility] Current PHONE: [phone] YENNIFER SNIDER Physician Warehouse Delivery Manager Current PHONE: Unknown [facility] Current PHONE: Unknown Meet has no Care Guidelines for this patient. EMary Ann VISIT COUNT (12 MO.) 2 [facility] Magdiel Ibrahim TOTAL 7 NOTE: Visits indicate total known visits. ED/UCC VISIT TRACKING (12 MO.) 09/06/2021 17:24 [facility] TYPE: Emergency COMPLAINT: - BLOOD IN URINE 07/08/2021 02:27 [facility] TYPE: Emergency DIAGNOSES: 52006. LF24 34539. Acute pancreatitis without necrosis or infection, unspecified . Unspecified abdominal pain . 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 - Hypothyroidism, unspecified - Allergy status to other drugs, medicaments and biological substances - Allergy status to narcotic agent - Allergy status to sulfonamides - Personal history of malignant neoplasm of thyroid - Essential (primary) hypertension - Pure hypercholesterolemia, unspecified - Personal history of other malignant neoplasm of large intestine - Unspecified abdominal pain 07/06/2021 14:26 [facility] TYPE: Emergency COMPLAINT: - FLU SYMPTOMS DIAGNOSES: - Allergy status to narcotic agent - Other termite control service representative (current) drug therapy - Pure hypercholesterolemia, unspecified - Pleural effusion, not elsewhere classified - Type 2 diabetes mellitus without complications - FDC (current) use of insulin - Hypothyroidism, unspecified - Allergy status to sulfonamides - Essential (primary) hypertension - Allergy status to other drugs, medicaments and biological substances - Elevated white blood cell count, unspecified - Anemia, unspecified 06/23/2021 19:12 [facility] TYPE: Emergency COMPLAINT: - PAIN 04/25/2021 02:58 [facility] TYPE: Emergency DIAGNOSES: 80865. Perforated Viscous/Ulcer 59517. ABD PAIN 93201. Perforation of intestine (nontraumatic) 04/24/2021 13:25 [facility] TYPE: Emergency COMPLAINT: - PAIN DIAGNOSES: - Type 2 diabetes mellitus without complications - Allergy status to sulfonamides - Pure hypercholesterolemia, unspecified - Hormone replacement therapy - Allergy status to narcotic agent - watermaster (current) use of aspirin - Contact with and (suspected) exposure to COVID-19 - Allergy status to other drugs, medicaments and biological substances - Essential (primary) hypertension - Unspecified abdominal pain - Chronic or unspecified gastric ulcer with perforation - Hypothyroidism, unspecified - FDC (current) use of insulin - 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 Acute respiratory failure with hypoxia 37987. Acute pancreatitis without necrosis or infection, unspecified 33621. Unspecified abdominal pain 53746. Other specified disorders of peritoneum 06/26/2021 23:08 [facility] TYPE: Surgery DIAGNOSES: 38020. Other specified disorders of peritoneum 71531. fluid collection 96626. Other specified disorders of peritoneum 62907. Other specified symptoms and signs involving the digestive system and abdomen 06/25/2021 21:16 [facility] TYPE: Medical Surgical COMPLAINT: - PANCREATIC PSEUDOCYST DIAGNOSES: - Contact with and (suspected) exposure to COVID-19 - Essential (primary) hypertension - Paroxysmal atrial [...] other surgical site, initial encounter - Acute kidney failure, unspecified - Acute pancreatitis with infected necrosis, unspecified [...] analgesic agent - Essential (primary) hypertension - FDC (current) use of anticoagulants - Body mass index [BMI] 28.0-28.9, adult - Unspecified protein-calorie malnutrition - Unspecified protein-calorie malnutrition - Allergy status to analgesic agent - Infection following a procedure, other surgical site, initial encounter - Other [place] [facility] (current[facility] drug therapy - Allergy status to sulfonamides - Paroxysmal atrial fibrillation - Acute kidney failure, unspecified - Other [place] [facility] (current) drug therapy - watermaster (current) use of anticoagulants - Body mass index [BMI] 28.0-28.9, adult - Allergy status to narcotic agent 04/25/2021 02:58 [facility] TYPE: Surgery DIAGNOSES: 44296. Other specified symptoms and signs involving the digestive system and abdomen . Perforation of intestine (nontraumatic) 09/27/2020 10:[facility]: Card[facility] DIAGNOSES: - Mixed hyperlipidemia - Type 2 diabetes mellitus without complications - Nonrheumatic aortic (valve) stenosis - Urinary tract infection, site not specified - Presence of prosthetic heart valve - FDC (current) use of insulin - Chronic kidney disease, stage 3 unspecified - Essential (primary) hypertension - Acute on chronic diastolic (congestive) heart failure - Paroxysmal atrial fibrillation [email or web address]
[2021-09-06] MEDS ORDERED: BENZONATATE100 MG PO (17:52)
[2021-09-06] MEDS ORDERED: SEROQUEL25 MG PO (17:52)
[2021-09-06] MEDS ORDERED: CEPHALEXIN500 MG PO (23:18)
== END 2021-09-07 00:16 | disposition home or self-care (01) ==
LOC: ED 17:23
DX: R31.9 Hematuria, unspecified (principal); K22.89 Other specified disease of esophagus; E03.9 Hypothyroidism, unspecified; E11.9 Type 2 diabetes mellitus without complications; I10 Essential (primary) hypertension; E78.00 Pure hypercholesterolemia, unspecified; Z88.2 Allergy status to sulfonamides; Z88.8 Allergy status to other drugs, medicaments and biological substances; Z88.5 Allergy status to narcotic agent; Z91.048 Other nonmedicinal substance allergy status; Z79.899 Other long term (current) drug therapy; Z79.4 Long term (current) use of insulin
CPT/HCPCS: 36415; 71045; 74178; 80048; 80053; 81001; 83690; 85025; 85060; 99284-25; A9270; J7040; Q9967

== ENCOUNTER 2021-11-29 14:04 | Inpatient (IN) | payer MEDICARE ==
[~2021-11-29] VITALS: Ht 157.5 cm; Wt 78.5 kg
[~2021-11-29 14:04] MED LIST changes: +BENZONATATE100 MG PO; +SEROQUEL25 MG PT
[2021-11-30] MEDS ORDERED: HUMALOG MI100 UNIT/2 SUB-Q (10:25)
[2021-11-30] MEDS ORDERED: DESITIN 40% PAS28 GM TOP (12:08)
[2021-11-30] MEDS ORDERED: TRAVOPROST2.5 ML OU (12:10)
[2021-11-30] MEDS ORDERED: CHOLESTYRAMI239.4 GM PO (12:10)
--- NOTE | 2021-12-02 19:39 | EKG ---
[facility] [address] [place] [address] Signed Accelerated Junctional rhythm Low voltage QRS Septal infarct , age undetermined Possible Lateral infarct , age undetermined Cannot rule out Inferior infarct , age undetermined Abnormal ECG No previous ECGs available Confirmed by DINO MARCELINO MD ([id number]) on 12/02/2021 7:39:41 PM Electronically Signed By: DINO MARCELINO MD 12/02/211938 PATIENT NAME: RONNA MELO Electrocardiogram DATE OF : 36 PHYSICIAN: DINO MARCELINO MD REPORT #: [id number] REPORT IS CONFIDENTIAL AND NOT TO BE RELEASED WITHOUT AUTHORIZATION
--- NOTE | 2021-12-07 18:40 | OR ---
[facility] [address] [place], [place] [address] Signed DATE OF OPERATION: 12/04/2021 SURGEON: Sofy Diaz MD PREOPERATIVE DIAGNOSES: 1. 11 cm intrauterine mass. 2. Urinary retention with associated mild bilateral hydroureteronephrosis with acute kidney injury. 3. Overflow urinary incontinence. POSTOPERATIVE DIAGNOSES: 1. 11 cm intrauterine mass. 2. Urinary retention with associated mild bilateral hydroureteronephrosis with acute kidney injury. 3. Overflow urinary incontinence. 4. Suspicious 4 cm sessile bladder lesion on the dome of the bladder, with associated tissue necrosis. NAME OF PROCEDURES: 1. Diagnostic cystoscopy. 2. Transurethral resection of bladder tumor-small. ANESTHESIA: General. ESTIMATED BLOOD LOSS: Minimal. COMPLICATIONS: None. SPECIMENS: Multiple fragments of suspicious bladder lesion sent to pathology for evaluation. DRAINS: A 20-Bahraini 2-way Carroll catheter. INDICATION FOR PROCEDURE: Ms. Encinas is an 81-year-old female with multiple medical issues, who presented to Electronically Signed By: SOFY DIAZ MD 12/07/21 1840 PATIENT NAME: RONNA ENCINAS OPERATIVE REPORT DATE OF : 36 REPORT #: [id number] PHYSICIAN: SOFY DIAZ MD PCP: BEATRIZ DUKES PAC REPORT IS CONFIDENTIAL AND NOT TO BE RELEASED WITHOUT AUTHORIZATION [facility] [address] [address] [place] [id number] Signed emergency department on November 30 with complaints of abdominal pain. She was found to be extremely anemic with a hemoglobin of around 6.5 on admission. She was also noted to have suction imaging was performed, which revealed a very large 11 cm heterogeneous intrauterine mass. She was also found to be in acute urinary retention with a distended bladder along with associated bilateral mild hydroureteronephrosis. A Carroll catheter is immediately inserted and her renal function has improved somewhat. She presents today to undergo a hysteroscopy with evacuation of hematometra as well as an endometrial biopsy. This was performed successfully by Dr. Ang and Dr. Hall. Because of her recent urinary retention issues, Dr. Agn has requested my presence intraoperatively for possible placement of suprapubic tube. Once diagnostic cystoscopy was performed, the decision was made to defer suprapubic tube placement and instead the patient underwent resection of a suspicious bladder lesion located on the dome of the bladder. The procedure is described as follows. FINDINGS: 1. On initial cystoscopy, there were multiple small blood clots located near the trigone of the bladder. Bilateral ureteral orifices are noted to be in their normal anatomic location. Evaluation of the dome of the bladder revealed a plaque like area of suspicion located on the dome of the bladder, measuring around 4 cm. There was a good deal of necrotic tissue associated with this lesion. The lesion was not overtly papillary in appearance. However, it did appear to be suspicious for malignancy. 2. The area in question was transurethrally resected using a bipolar 24-Bahraini loop. The resection was done quite carefully due to the location of the lesion being at the dome of the bladder. I believe I did resect low enough in some areas to catch some detrusor muscle. There is one particular area in the bladder that was resected that ended up being quite thin after resection. So, as soon as I saw this portion of the dome of the bladder was thinned out, I chose to stop the procedure. At this point in time, I performed the necessary hemostasis and was able to collect the resected fragments of bladder lesion. 3. At the end of the procedure, a 20-Bahraini 2-way Carroll catheter was inserted into the patient's bladder and was connected to gravity drainage. DESCRIPTION OF PROCEDURE: After informed consent was obtained, the patient was taken back to the operating room. She was transferred from the [facility] to the operating room table, where general anesthesia was induced. She then underwent evacuation of hematometra followed by hysteroscopy and a D and C procedure performed by the as400 consultant. Please refer to their note for details. Once they were finished with their portion of procedure, the patient was re-prepped and draped. Using a 30-degree lens on a 22.5-Bahraini introducer, a rigid cystoscope was inserted through the urethra into her bladder under direct visualization. Panendoscopic views of the bladder were then obtained. Please see above findings. It was at this point in time that I chose not to place a suprapubic tube due Electronically Signed By: SOFY DIAZ MD 12/07/21 1840 PATIENT NAME: RONNA ENCINAS OPERATIVE REPORT DATE OF : 38 REPORT #: [id number] PHYSICIAN: SOFY DIAZ MD PCP: BEATRIZ DUKES PAC REPORT IS CONFIDENTIAL AND NOT TO BE RELEASED WITHOUT AUTHORIZATION [address] [address] Signed to the presence of a suspicious bladder lesion measuring around 4 cm, present at the dome of the bladder. Instead of placing a suprapubic tube, we prepared for transurethral resection of bladder mass. Using a visual obturator, I placed a 26-Bahraini sheath. I then inserted a bipolar resectoscope with a 24-Bahraini loop and resected the suspicious lesion present at the dome of the bladder. There was a good deal of necrotic tissue that I also was able to transurethrally resect. This was a very thin portion of the bladder, so I was very careful to resect very slowly and superficially. In some areas, I am confident that I was able to get detrusor muscle for specimen purposes. There was one particular area that resulted in quite thin area of remaining bladder wall. At this point in time, most of my resection had been complete, so I chose to focus on hemostasis and complete the procedure. A Omar syringe was used to irrigate all the bladder lesion fragments from the bladder. These were placed in a specimen cup to be sent to pathology for evaluation. Once adequate hemostasis was achieved, the resectoscope was then removed. A 20-Bahraini 2-way Carroll catheter was then inserted into the patient's bladder and connected to gravity drainage. Prior to connecting it to gravity drainage, I did manually irrigate the Carroll catheter multiple times to ensure adequate placement. It irrigated quite nicely. The procedure was then terminated. The patient tolerated the procedure well without any complication. She will now be transferred to the postanesthesia care unit in stable condition. DISPOSITION: I discussed the details of today's procedure with the patient's son and daughter and answered all of her questions. I told them that unfortunately I could not place a suprapubic tube today because I did see a suspicious area in the dome of her bladder that needs to be investigated prior to suprapubic tube placement. I got more than adequate tissue for today's bladder biopsy and this will be sent to pathology for evaluation. I told the patient's daughter that I will contact her in about 5 to 7 business days in order to let her know the result of today's bladder biopsy. In the interim, she will maintain a Carroll catheter to gravity drainage. She will require exchange of her Carroll catheter every 3 weeks. I have scheduled for her to have her catheter exchange in approximately 3 weeks in my clinic. The patient's family verbalized understanding of the plan of care and are in agreement. She will now be taken back to the floor and will remain under the care of Dr. Ang. MD ENRIQUE Zacarias/ОЛЕГL /[id number] Electronically Signed By: SOFY DIAZ MD 12/07/21 1840 PATIENT NAME: RONNA ENCINAS OPERATIVE REPORT DATE OF : 38 REPORT #: [id number] PHYSICIAN: SOFY DIAZ MD PCP: BEATRIZ DUKES PAC REPORT IS CONFIDENTIAL AND NOT TO BE RELEASED WITHOUT AUTHORIZATION [facility] [address] [place] [address] Signed Copies: ~ Electronically Signed By: SOFY DIAZ MD 12/07/21 1840 PATIENT NAME: RONNA ENCINAS OPERATIVE REPORT DATE OF : 38 REPORT #: [id number] PHYSICIAN: SOFY DIAZ MD PCP: BEATRIZ DUKES PAC REPORT IS CONFIDENTIAL AND NOT TO BE RELEASED WITHOUT AUTHORIZATION
--- NOTE | 2021-12-12 09:59 | OR ---
[facility] [address] [place], [place] [address] Signed DATE OF OPERATION: 12/04/2021 SURGEON: Angie Ang DO HUMAN PROJECTILE: AMA Hall, DO PROCEDURE: Exam under anesthesia, vaginoscopy, hysteroscopy D and C, evacuation of hematometria BLOOD LOSS: 5 mL. ANESTHESIA: Spinal and general. COMPLICATIONS: None. FINDINGS: Small vaginal area exceeding no more than 3 cm in depth with anterior opening consistent with stenotic cervix in the 12 o'clock position with small dark blood clot protruding. Significant amount of old dark blood clot expressed. Normal rectal exam. Refer to Dr. Lind' dictation for cystoscopy and evaluation of urologic system. INDICATION: The patient is an 81-year-old female, who presented to the ED with abdominal pain. She was found on CT exam to have a 10 cm vaginal mass obstructing the bladder with resulting hydronephrosis. Carroll catheter was placed relieving bladder obstruction. The patient was admitted and Eliquis was held, pending further exam. The patient initially refused vaginal exam, but consented to an exam on Saturday, 12/02. However, exam was significantly limited by the patient comfort as well as positioning in her hospital bed. Transabdominal and transperineal ultrasound were performed, again with limited characterization/ localization of the presumed vaginal mass. Risks, benefits, and alternatives to exam under anesthesia with associated procedures including vaginoscopy, hysteroscopy D and C, possible vaginal biopsy, possible Electronically Signed By: ANGIE ANG DO 12/12/21 0959 PATIENT NAME: RONNA MELO OPERATIVE REPORT DATE OF : 38 REPORT #: [id number] PHYSICIAN: ANGIE ANG DO PCP: BEATRIZ DUKES PAC REPORT IS CONFIDENTIAL AND NOT TO BE RELEASED WITHOUT AUTHORIZATION [facility] [address] [place], [place] [address] Signed evacuation of hematoma, and possible placement of suprapubic catheter by Urology were discussed with patient, her son Joaquin, daughter Lucero, and they elected to proceed. MRI was completed preop with images reviewed with images consistent with hematometria and cervical stenosis/ obstruction, however radiology report was not yet available at the time of procedure. DESCRIPTION OF PROCEDURE: The patient was taken to the operating room, where spinal anesthesia was placed and she was then placed under general anesthesia and positioned in dorsal lithotomy. She was prepped and draped in normal sterile fashion. Yanet retractors were used to visualize the vagina. Of note, this exam was extremely limited. Scope was introduced into the vagina. Labial folds were held together to allow for distension with normal saline using AquaLux fluid management system and vaginoscopy was performed, with notable blood clot coming from the anterior vaginal defect/possible cervix. Hegar dilator was used to sequentially dilate the cervix. With each dilation, large amount of clot was expressed consistent with hematometra with cervical stenosis. Hysteroscope was then introduced and used to further flush clot; however, visualization of the presumed uterine cavity was extremely limited and fluid deficit increased quickly. Hysteroscope was removed. Sharp curette was used to gently circumferentially curette this cavity with tissue obtained consistent with blood clots and endometrial lining. Hysteroscope was again introduced with similar limited findings as noted previously. Tubal ostia were not visualized. Carroll catheter was placed, introduced through the cervix, and inflated to 30 mL normal saline to allow for continued drainage of hematometria over time. Rectal exam was performed with normal findings. All instrumentation was removed. Sponge counts and instrument counts were correct. The patient was re-prepped and draped for Urology procedure as reported separately. Angie Ang DO EMZ/MODL /[id number] Electronically Signed By: ANGIE ANG DO 12/12/21 0959 PATIENT NAME: RONNA MELO OPERATIVE REPORT DATE OF : 38 REPORT #: [id number] PHYSICIAN: ANGIE ANG DO PCP: BEATRIZ DUKES PAC REPORT IS CONFIDENTIAL AND NOT TO BE RELEASED WITHOUT AUTHORIZATION [facility] [address] [place] [id number] Signed Copies: ~ Electronically Signed By: ANGIE ANG DO 12/12/21 0959 PATIENT NAME: RONNA MELO OPERATIVE REPORT DATE OF : 38 REPORT #: [id number] PHYSICIAN: ANGIE ANG DO PCP: BEATRIZ DUKES PAC REPORT IS CONFIDENTIAL AND NOT TO BE RELEASED WITHOUT AUTHORIZATION
--- NOTE | 2021-12-15 14:23 | PATH ---
[facility] [address] [place], [place] [address] Signed THIS IS AN ADDENDUM REPORT SPECIMEN(S): A UTERINE CURETTINGS SPECIMEN(S): B NECROTIC BLADDER LESION SPECIMEN SOURCE: A. UTERINE CURETTINGS B. NECROTIC BLADDER LESION CLINICAL HISTORY: Hematometra. FINAL PATHOLOGIC DIAGNOSIS: A. Uterine curettings: - The specimen consists entirely of blood and fibrin with one minute fragment of atypical epithelioid cells. B. Necrotic bladder lesion: - Fragments of bladder wall consisting of muscularis propria with stroma infiltrated by eosinophils and acute and chronic inflammation. - Viable fragments of urothelium are identified, demonstrating features of acute and chronic cystitis. - Other fragments of tissue consist entirely of necrosis and an abundance of neutrophils. - There is no evidence of malignancy present in these sections. COMMENT: Regarding part A, the cells are suspicious for a malignant neoplasm. An attempt to further classify this malignancy will be carried out using immunohistochemistry. The prior history of colonic adenocarcinoma is noted. Preliminary findings discussed with Drs. Mejía and Sav at [facility] in [place], [place]. HENNAK:[place]ron:em:C2NR MICROSCOPIC EXAMINATION: Histologic sections of all submitted blocks are examined by light microscopy. These findings, together with the gross examination, support the pathologic diagnosis. GROSS DESCRIPTION: Two specimens are received in two containers, labeled "BC." PATIENT NAME: RONNA MELO PATHOLOGY DATE OF : 38 REPORT #: [id number] PHYSICIAN: VINOD PATHOLOGY PCP: BEATRIZ DUKES PAC REPORT IS CONFIDENTIAL AND NOT TO BE RELEASED WITHOUT AUTHORIZATION [facility] [address] [place], [place] [address] Signed A. The specimen, labeled "BC, A," and designated on the requisition "uterine curettings," is received in formalin and consists of a portion of liu to red-brown soft tissue (3.0 x 2.5 x 0.4 cm in aggregate). The specimen is submitted entirely in cassette (A1). B. The specimen, labeled "BC, B," and designated on the requisition "necrotic bladder lesion," is received in formalin and consists of multiple fragments of pink-liu soft to rubbery tissue (2.5 x 1.5 x 0.3 cm in aggregate). The specimen is submitted entirely in cassette B1. AC (under the direct supervision of a pathologist) The Gross Description was prepared using a voice recognition system. The report was reviewed for accuracy; however, sound-alike word errors, addition and/or deletions may occur. If there is any question about this report, please contact Client Services. PERFORMING LABORATORY: The technical component was performed by [email or web address], [address] [place] [id number] (CLIA# [id number]). The professional interpretation was performed by [facility], [facility], [address] [place] [address] (CLIA#: [id number]). ADDITIONAL NOTES: Immunohistochemical and/or in situ hybridization studies were performed on this case with the appropriate positive controls that react as expected. This test was developed and its performance characteristics determined by [email or web address]. It has not been cleared or approved by the U.S. Food and Drug Administration. The FDA has determined that such clearance or approval is not necessary. This test is used for clinical purposes. It should not be regarded as investigational or for research. [email or web address] is certified under the Clinical Laboratory Improvement Amendments of 1988 (CLIA) as qualified to perform high complexity clinical laboratory testing. This assay has not been validated for specimens that have been decalcified. REASON FOR ADDENDUM: To add results of additional testing on specimen A. Results of immunohistochemical stains reveal the following: - EQUIVOCAL: ER, TINY-3 (favor negative), CDx2 (favor negative). ADDENDUM COMMENT: Additional immunohistochemical stains, such as P53, CK20, CK7, and PAX8 were PATIENT NAME: RONNA MELO PATHOLOGY DATE OF : 38 REPORT #: [id number] PHYSICIAN: VINOD BOLANOS PCP: BEATRIZ DUKES PAC REPORT IS CONFIDENTIAL AND NOT TO BE RELEASED WITHOUT AUTHORIZATION [address] [address] Signed attempted although no tissue was left for evaluation. Given these findings, a more definitive classification of the atypical cells identified cannot be accomplished. If clinically feasible, if more tissue could be obtained, further evaluation may continue. Control slides stained appropriately positive. TWK:david Diagnostician: Ruddy Britt MD Pathologist Electronically Signed 12/15/2021 Copies: ~ PATIENT NAME: LORIERONNA MANN PATHOLOGY DATE OF : 38 REPORT #: [id number] PHYSICIAN: VINOD BOLANOS PCP: BEATRIZ DUKES PAC REPORT IS CONFIDENTIAL AND NOT TO BE RELEASED WITHOUT AUTHORIZATION
== END 2021-12-08 06:05 | DRG 746 ==
LOC: ED 14:04 → MS 11-30 01:47 → CCU 11-30 01:47 → MS 11-30 02:47 → CCU 12-04 17:40 → MS 12-05 12:08
PROVIDERS: Obstetrics & Gynecology; Urology; ADMIT Family Medicine; ATTEND Family Medicine
PROC: 0U7 Female Reproductive System, Dilation (ICD-10-PCS; 2021-12-04)
PROC: 0UCC8ZZ Extirpation of Matter from Cervix, Via Natural or Artificial Opening Endoscopic (ICD-10-PCS; principal; 2021-12-04 12:45)
PROC: 0TBB8ZZ Excision of Bladder, Via Natural or Artificial Opening Endoscopic (ICD-10-PCS; 2021-12-04 12:45)
PROC: 30233N1 Transfusion of Nonautologous Red Blood Cells into Peripheral Vein, Percutaneous Approach (ICD-10-PCS; 2021-12-04 12:45)
DX: N85.8 Other specified noninflammatory disorders of uterus (principal); G93.41 Metabolic encephalopathy; N17.9 Acute kidney failure, unspecified; I96 Gangrene, not elsewhere classified; N13.6 Pyonephrosis; N85.7 Hematometra; Z66 Do not resuscitate; N89.8 Other specified noninflammatory disorders of vagina; Z51.5 Encounter for palliative care; E78.00 Pure hypercholesterolemia, unspecified; I10 Essential (primary) hypertension; E03.9 Hypothyroidism, unspecified; D64.9 Anemia, unspecified; I48.0 Paroxysmal atrial fibrillation; R33.9 Retention of urine, unspecified; Z20.822 Contact with and (suspected) exposure to COVID-19; R32 Unspecified urinary incontinence; B96.1 Klebsiella pneumoniae [K. pneumoniae] as the cause of diseases classified elsewhere; E11.65 Type 2 diabetes mellitus with hyperglycemia; Z87.19 Personal history of other diseases of the digestive system; Z85.038 Personal history of other malignant neoplasm of large intestine; Z85.850 Personal history of malignant neoplasm of thyroid; Z98.890 Other specified postprocedural states; Z96.89 Presence of other specified functional implants; Z79.2 Long term (current) use of antibiotics; Z79.811 Long term (current) use of aromatase inhibitors; Z90.49 Acquired absence of other specified parts of digestive tract; Z95.2 Presence of prosthetic heart valve; Z88.2 Allergy status to sulfonamides; Z88.8 Allergy status to other drugs, medicaments and biological substances; Z88.5 Allergy status to narcotic agent; Z79.899 Other long term (current) drug therapy; Z79.01 Long term (current) use of anticoagulants; Z79.4 Long term (current) use of insulin
CPT/HCPCS: 36415; 36430; 71045; 72197; 74176; 76856; 80048; 80053; 81001; 83605; 83690; 85025; 85060; 86850; 86900; 86901; 86922; 87077; 87088; 87186; 87502; 88305; 88307; 88341; 88342; 93005; 93010; 94660; 94760; 94762; 96374; 96375; 97163; 97167; 99285-25; A9270; A9577; C9803; J0171; J0696; J1610; J1650; J1815; J1885; J2001; J2405; J2704; J7030; J7121; P9016; U0003